=== PATIENT | female | born 1955 | race Caucasian/White ===

== ENCOUNTER → 2017-02-11 | Outpatient (CLI) | payer OTHER ==
--- NOTE | 2017-02-12 19:35 | Diagnostic Imaging Report ---
INDICATION: Screening. EXAMINATION: Bilateral digital screening mammogram with CAD, 02/11/2017. The current study was also evaluated with a Computer Aided Detection (CAD) system. COMPARISON: 05/25/2012 and 12/09/2006. FINDINGS: The breasts are heterogeneously dense. Several nodular densities noted bilaterally are stable likely lymph nodes. No new suspicious microcalcifications or dominant masses are seen. IMPRESSION: No mammographic evidence for malignancy. Yearly screening is recommended. ACR BI-RADS Category 2: Benign findings. Result letter will be mailed to the patient. Note: At least 10% of breast cancer is not imaged by mammography. Dictated by: Dictated on workstation # [id number]
== END ==
LOC: RAD 07:42
PROVIDERS: ATTEND Physician Assistant Medical
DX: Z12.31 Encounter for screening mammogram for malignant neoplasm of breast (principal)